=== PATIENT | female | born 1965 | race Hispanic/Latino ===

== ENCOUNTER 2017-11-30 15:07 | Outpatient (CLI) | payer OTHER ==
--- NOTE | 2017-12-03 10:49 | MMO ---
BILATERAL SCREENING MAMMOGRAM: Date: 11/30/17 HISTORY: Screening. COMPARISON: Mammograms from 2010, 2008, and 2007. TECHNIQUE: Bilateral screening CC and MLO mammograms. This patient's mammogram was interpreted with the assistance of computer-aided detection. FINDINGS: There are scattered fibroglandular densities. No suspicious mass, architectural distortion, or microc alcifications. IMPRESSION: BIRADS 2: Benign Finding(s) Continued annual mammographic screening is recommended. POS: [place]
== END 2017-11-30 15:08 | disposition home or self-care (01) ==
LOC: SCSMAMMO 15:07
PROVIDERS: ATTEND Nurse Practitioner Family
DX: Z12.31 Encounter for screening mammogram for malignant neoplasm of breast (principal)
CPT/HCPCS: 77067